=== PATIENT | female | born 1980 | race Caucasian/White ===

== ENCOUNTER 2017-02-26 07:45 | Emergency (ER) | payer MEDICAID ==
[2017-02-26] MEDS ORDERED: Amoxicillin/Clavulanate K 875-125 MG Tab ONE (08:45)
[2017-02-26 08:58] VITALS: BP 139/94
--- NOTE | 2017-02-26 10:01 | EDM.PDOC ---
ED HPI GENERAL MEDICAL PROBLEM - General Chief Complaint: General Stated Complaint: SORE THROAT, FEVER Time Seen by Provider: 02/26/17 08:15 Source of Information: Reports: Patient History Limitations: Reports: No Limitations - History of Present Illness INITIAL COMMENTS - FREE TEXT/NARRATIVE: According to patient she has been having nasal congestion and cough for past 1 wk now. She had low grade fever when it started. She has been having sore throat for past 2 days now.Itching and hurting to swallow.She has constant post nasal drip and also she has been having left sided frontal headache. No nausea, vomiting or dizziness. Pt did try OTC sinus meds with nor relief. Cough is persistent and gets worse at night. No wheezing or shortness of breath. Onset: Today Duration: Week(s): (1) Severity: Moderate Improves with: Reports: None Worsens with: Reports: None Associated Symptoms: Reports: Cough, Fever/Chills, Headaches. Denies: Confusion , Chest Pain, Diaphoresis, Loss of Appetite, Nausea/Vomiting, Rash, Seizure, Shortness of Breath, Syncope, Weakness trhoat Pain Score (Numeric/FACES): 7 - Related Data Allergies Allergy/AdvReac Type Severity Reaction Status Date / Time cefaclor [From Ceclor] Allergy Other Verified 02/26/17 08:59 Sulfa (Sulfonamide Allergy Other Verified 02/26/17 08:59 Antibiotics) Home Meds: Home Meds Escitalopram Oxalate [Lexapro] 20 mg PO DAILY 02/26/17 [History] Ethinyl Estradiol/Etonogestrel [Nuvaring Vaginal Ring] 1 each VAG ASDIRECTED [History] Lisinopril [Prinivil] 5 mg PO DAILY 02/26/17 [History] atorvaSTATin [Lipitor] 10 mg PO BEDTIME 02/26/17 [History] buPROPion [Wellbutrin SR] 150 mg PO DAILY 02/26/17 [History] Past Medical History HEENT History: Reports: Other (See Below) Other HEENT History: [place] teeth rmoved as child BEHAVIORAL HEALTH TECH History: Reports: Other OB/BYN History: Preg 39 weeks and has child approx 8 Musculoskeletal History: Reports: Back Pain, Chronic Other Musculoskeletal History: more intense since preg - Past Surgical History HEENT Surgical History: Reports: Oral Surgery Social & Family History - Family History Family Medical History: Noncontributory - Tobacco Use Smoking Status *Q: Never Smoker Second Hand Smoke Exposure: No - Recreational Drug Use Recreational Drug Use: No ED ROS GENERAL - Review of Systems Review Of Systems: See Below Constitutional: Reports: Fever. Denies: Chills, Malaise HEENT: Reports: Rhinitis, Sinus Problem, Throat Pain. Denies: Throat Swelling Respiratory: Reports: Cough, Sputum. Denies: Shortness of Breath, Wheezing, Pleuritic Chest Pain Cardiovascular: Denies: Chest Pain, Lightheadedness GI/Abdominal: Denies: Abdominal Pain, Nausea, Vomiting Musculoskeletal: Denies: Joint Pain, Joint Swelling ED EXAM, GENERAL - Physical Exam Exam: See Below Exam Limited By: No Limitations General Appearance: Alert, WD/WN, No Apparent Distress Eye Exam: Bilateral Eye: EOMI, PERRL Ears: Normal External Exam, Normal Canal, Hearing Grossly Normal, Normal TMs Ear Exam: Bilateral Ear: Auricle Normal, Canal Normal, TM normal Nose: Normal Mucosa, Nasal Drainage (thick mucoid) Throat/Mouth: Normal Inspection, Normal Lips, Normal Teeth, Normal Gums, Normal Oropharynx, Normal Voice, No Airway Compromise, Other (post nasal drip seen) Head: Atraumatic, Normocephalic, Sinus Tenderness (left frontal and maxillary sinus tenderness) Neck: Normal Inspection, Supple, Non-Tender, Full Range of Motion Respiratory/Chest: No Respiratory Distress, Lungs Clear, Normal Breath Sounds, No Accessory Muscle Use, Chest Non-Tender Cardiovascular: Normal Peripheral Pulses, Regular Rate, Rhythm, No Edema, No Gallop, No JVD, No Murmur, No Rub GI/Abdominal: Normal Bowel Sounds, Soft, Non-Tender, No Organomegaly, No Distention, No Abnormal Bruit, No Mass Course - Vital Signs Text/Narrative:: Pt's strep test is negative. Her CBC shows mild elevation of white count at 11 K. She has left sided frontomaxillary sinusitis. As her symptoms have been going on for past 1 wk and her symptoms are getting worse. I have empirically covered her with augmentin 875mg BID for 10 days. Advised steam inhalations 3-4 times daily. Avoid OTC sinus and cold meds. Rest and hydration. Followup in clinic if symptoms worsen. Last Recorded V/S: Last Vital Signs Temp 97.8 F 02/26/17 08:54 Pulse 81 02/26/17 08:54 Resp 16 02/26/17 08:54 BP 139/94 H 02/26/17 08:54 Pulse Ox 98 02/26/17 08:54 - Orders/Labs/Meds Orders: Active Orders 24 hr Category Date Time Status STREP A POC [POC] Stat Lab 02/26/17 09:03 Ordered Labs: Laboratory Tests 02/26/17 Range/Units 09:40 WBC 11.1 H (4.0-11.0) K/uL RBC 4.67 (3.80-5.80) M/uL Hgb 13.7 (11.5-16.5) g/dL Hct 40.8 (37.0-47.0) % MCV 87 (76-96) fL MCH 29.3 (27.0-32.0) pg MCHC 33.6 (31.0-35.0) g/dL RDW 12.6 (11.0-16.0) % Plt Count 257 (150-500) K/uL MPV 9.6 (6.0-10.0) fL Neut % (Auto) 71.7 H (45.0-70.0) % Lymph % (Auto) 19.7 L (20.0-40.0) % [place] % (Auto) 5.9 (3.0-10.0) % Eos % (Auto) 2.3 (1.0-5.0) % Baso % (Auto) 0.4 (0.0-0.5) % Neut # (Auto) 7.96 H (2.00-7.50) K/uL Lymph # (Auto) 2.18 (1.50-4.00) K/uL [place] # (Auto) 0.65 (0.20-0.80) K/uL Eos # (Auto) 0.26 (0.04-0.40) K/uL Baso # (Auto) 0.04 (0.02-0.10) K/uL Departure - Departure Time of Disposition: 10:00 Disposition: Home, Self-Care 01 Condition: Good Clinical Impression: Acute bacterial sinusitis - Discharge Information Referrals: PCP,None [Primary Care Provider] - - Problem List & Annotations (1) Acute bacterial sinusitis SNOMED Code(s): 19995375 Code(s): J01.90 - ACUTE SINUSITIS, UNSPECIFIED; B96.89 - OTH BACTERIAL AGENTS THE CAUSE OF DISEASES CLASSD [id number] Status: Acute - Problem List Review Problem List Initiated/Reviewed/Updated: Yes - My Orders Last 24 Hours: My Active Orders 02/26/17 09:03 STREP A POC [POC] Stat - Assessment/Plan Last 24 Hours: My Active Orders 02/26/17 09:03 STREP A POC [POC] Stat Assessment:: Acute bacterial sinusitis Plan: Pt's strep test is negative. Her CBC shows mild elevation of white count at 11 K. She has left sided frontomaxillary sinusitis. As her symptoms have been going on for past 1 wk and her symptoms are getting worse. I have empirically covered her with augmentin 875mg BID for 10 days. Advised steam inhalations 3-4 times daily. Avoid OTC sinus and cold meds. Rest and hydration. Followup in clinic if symptoms worsen.
== END 2017-02-26 10:01 | disposition home or self-care (01) ==
LOC: LB.ED 07:45
DX: J01.90 Acute sinusitis, unspecified (principal); B96.89 Other specified bacterial agents as the cause of diseases classified elsewhere; Z88.2 Allergy status to sulfonamides; Z79.899 Other long term (current) drug therapy
CPT/HCPCS: 36415; 85025; 99283; A9270; 87430

== ENCOUNTER → 2018-12-21 | Outpatient (CLI) | payer BC, MEDICAID | LOC: LB.CLINIC 15:48 | PROVIDERS: ATTEND Nurse Practitioner Family | DX: J02.9 Acute pharyngitis, unspecified (principal); R05 Cough | CPT/HCPCS: 36415; 85025; 87430 ==

== ENCOUNTER 2023-09-25 14:24 | Emergency (ER) | payer BC, MEDICAID ==
[2023-09-25 14:49] VITALS: BP 149/109; PULSE 82
[2023-09-25] MEDS ORDERED: Cyclobenzaprine 10 MG Tab ONE (15:00)
== END 2023-09-25 15:10 | disposition home or self-care (01) ==
LOC: LB.ED 14:24
DX: S86.911A Strain of unspecified muscle(s) and tendon(s) at lower leg level, right leg, initial encounter (principal); I10 Essential (primary) hypertension; E78.00 Pure hypercholesterolemia, unspecified; F17.210 Nicotine dependence, cigarettes, uncomplicated; Z79.899 Other long term (current) drug therapy; Z88.1 Allergy status to other antibiotic agents; Z88.2 Allergy status to sulfonamides; X58.XXXA Exposure to other specified factors, initial encounter
CPT/HCPCS: 99283; A9270-GY